=== PATIENT | female | born 1985 | race Caucasian/White ===

== ENCOUNTER 2021-04-06 03:12 | Emergency (ER) | payer MEDICAID ==
[~2021-04-06] VITALS: Ht 177.8 cm; Wt 66.7 kg
--- OUTSIDE RECORDS SUMMARY | 2021-04-06 03:20 | XMS ---
PreManage Notification: JONATHAN COLLINS [employer] 1 event(s) in the past 18 months Most recent security events: Elopement at [facility] 03/31/2021 14:33 Details: PATIENT LWBS CRITERIA MET - [facility] - 3 Facilities in 90 Days - 6 ED Visits in 6 Months - [facility] - 2 Visits in 30 Days CARE PROVIDERS MARYLOU SINGLETON Counselor: Mental Health Current PHONE: [phone] Jenny has no Care Guidelines for this patient. Deandre VISIT COUNT (12 MO.) [address] [facility]jor[facility] 3 [facility] TOTAL 6 NOTE: Visits indicate total known visits. ED/UCC VISIT TRACKING (12 MO.) 04/06/2021 03:12 MARYBETH Bass TYPE: Emergency COMPLAINT: - FINGER PAIN 04/02/2021 11:24 Marjorie FROST TYPE: Emergency COMPLAINT: - RIGHT HAND INFECTION 04/01/2021 06:41 MARYBETH [facility] [place] TYPE: Emergency COMPLAINT: - R RING FINGER SWELLING/PAIN DIAGNOSES: - Other infective (teno)synovitis, right hand - Local infection of the skin and subcutaneous tissue, unspecified - Allergy status to narcotic agent 03/31/2021 14:33 MARYBETH Gilbert [place] TYPE: Emergency COMPLAINT: - SKIN PROBLEM 02/10/2021 15:11 Ramy Cr [place] TYPE: Emergency DIAGNOSES: - Schizophrenia, unspecified - Blister (nonthermal), left foot, initial encounter - Problem related to housing and economic circumstances, unspecified - Blister (nonthermal), right foot, initial encounter - Foot Pain - Cellulitis of right finger 11/24/2020 11:22 [facility] Junior Maldonado [place] TYPE: Emergency COMPLAINT: - POSS ABCESS ON CHIN INPATIENT VISIT TRACKING (12 MO.) 04/03/2021 10:30 Marjorie FROST TYPE: Medical Surgical COMPLAINT: - CELLULITIS 04/01/2021 12:35 [facility] Carlos Manuel FROST TYPE: Internal Medicine DIAGNOSES: - Synovitis and tenosynovitis, unspecified - Flexor tenosynovitis right 4th finger [email or web address]
== END 2021-04-06 04:23 | disposition left against medical advice (07) ==
LOC: ED 03:12
DX: L08.9 Local infection of the skin and subcutaneous tissue, unspecified (principal); Z88.5 Allergy status to narcotic agent
CPT/HCPCS: 99283